=== PATIENT | female | born 1960 | race Caucasian/White ===

== ENCOUNTER 2021-05-24 07:50 | Outpatient (CLI) | payer BC | END 2021-05-24 07:51 | disposition home or self-care (01) | LOC: BICMAMMO 07:50 | PROVIDERS: ATTEND Student in an Organized Health Care Education/Training Program | DX: Z13.820 Encounter for screening for osteoporosis (principal); M85.851 Other specified disorders of bone density and structure, right thigh | CPT/HCPCS: 77080 ==